=== PATIENT | female | born 1940 | race Caucasian/White ===

== ENCOUNTER → 2017-01-03 | Outpatient (CLI) | payer MEDICARE, BC ==
[~2017-01-03] MED LIST: ALEVE PO; ALEVE220 M1 PO; ALLEVE; ALTACE5 M1 PO; ASPIRIN81 M1 PO; ASPIRIN81 M2 PO; BENICAR20 MG PO; CALCIUM + D 6001 TA1 PO; CRESTOR10 MG PO; CULTIVATE CREAM; FISH OIL 1,0001 CAP PO; FISH OIL300 MG PO; FISH OIL500 M1 PO; FOSAMAX70 MG PO; HYDROCODON-ACE1 EAC9 PO; IBUPROFEN600 MG PO; LEVAQUIN PO; OMEPRAZOLE20 M2 PO; PRILOSEC20 MG PO; VITAMIN D1000 UNI1; VITAMIN D1000 UNIT PO
--- NOTE | ~2017-01-03 | BD1 ---
[facility] A Service of [facility] & [facility] RADIOLOGY TEXT RESULTS PATIENT: JAROCHO ODELL LOCATION: [facility] : 40 UNIT #: [id number] AGE: [address]: Yamile Augustin MD SEX: F ORDER DR: [id number] [facility] [address] [place], [place] [address] [id number] O MR#: [id number] Acc #: [id number] NAME: JAROCHO ODELL : 1940 SEX: F STUDY DATE/TIME: 01/03/2017 9:36 UNIT: [facility] ROOM: STUDY DESCRIPTION: BD Dexa Bone Dens 1+ Site Attending Physician: Yamile Augustin M.D. Ordering Physician: Yamile Augustin M.D. Primary Care Physician: Yamile Augustin M.D. MEDICAL IMAGING REPORT This report is preliminary unless electronic signature is present EXAM DEXA scan 01/03/2017 HISTORY Status post menopause with no hormone replacement therapy. Osteopenia. Hysterectomy at age 48 with removal of both ovaries. Arthritis. Hypertension with blood pressure medication for 6 years. Family history of osteoporosis in mother and sister. Fracture of spine in the last 10 years. FINDINGS Bone mineral density in the lumbar spine from L1 through L4 is 0.768 g/cm2 which is 2.5 standard deviations below the mean when compared to the young adult reference population which is characteristic of osteopenia. This is 0.1 standard deviations below the mean when compared to the age-matched population. Compared with 10/25/2014, there has been a decrease in bone mineral density in the lumbar spine of 2.8%. Bone mineral density in the left femoral neck was 0.553 g/cm2 which is 2.7 standard deviations below the mean when compared to young adult reference population which is characteristic of characteristic of osteoporosis. This is 0.5 standard deviations below the mean when compared to the age-matched population. Compared with 10/25/2014 there has been a decrease in bone mineral density in the left hip of 4.9%. IMPRESSION Bone mineral density in the lumbar spine and left hip characteristic of osteoporosis. Compared with 10/25/2014 there has been a decrease in bone mineral density in the lumbar spine and the left hip. Dictated by... Miguelangel Merino M.D. THIS IS AN ELECTRONICALLY VERIFIED REPORT [facility] A Service of [facility] RADIOLOGY TEXT RESULTS PATIENT: JAROCHO ODELL LOCATION: [facility] : 40 UNIT #: [id number] AGE: [address]: Yamile Augustin MD SEX: F ORDER DR: Miguelangel Merino M.D. at 01/04/2017 8:05 AM KRT/to TD: 01/03/2017 12:08 JOB #: [id number] MEDICAL IMAGING REPORT Page 1 of 1 COPY
== END | disposition home or self-care (01) ==
LOC: CWCC 09:18
DX: M81.0 Age-related osteoporosis without current pathological fracture (principal)
CPT/HCPCS: 77080

== ENCOUNTER → 2017-03-05 | Outpatient (CLI) | payer MEDICARE, BC | END | disposition home or self-care (01) | LOC: CSSDAY 03-04 09:30 | DX: M81.0 Age-related osteoporosis without current pathological fracture (principal) | CPT/HCPCS: 96372; J0897 ==